=== PATIENT | male | born 1955 | race Asian ===

== ENCOUNTER 2016-11-17 07:21 | Day surgery (SDC) | payer OTHER ==
[~2016-11-17] VITALS: Ht 175.3 cm; Wt 74.8 kg
[2016-11-17 08:17] VITALS: BP 161/69
[2016-11-17 12:04] VITALS: BP 131/51
== END 2016-11-17 12:50 | disposition home or self-care (01) ==
LOC: GI 07:21 → OR 11:30 → GI 12:50
PROVIDERS: Internal Medicine Gastroenterology
PROC: 0DBN8ZZ Excision of Sigmoid Colon, Via Natural or Artificial Opening Endoscopic (ICD-10-PCS; principal; 2016-11-17 11:30)
PROC: 0DBM8ZZ Excision of Descending Colon, Via Natural or Artificial Opening Endoscopic (ICD-10-PCS; 2016-11-17 11:30)
DX: Z12.11 Encounter for screening for malignant neoplasm of colon (principal); D12.5 Benign neoplasm of sigmoid colon; D12.4 Benign neoplasm of descending colon; K57.30 Diverticulosis of large intestine without perforation or abscess without bleeding; K64.8 Other hemorrhoids; E11.9 Type 2 diabetes mellitus without complications; I10 Essential (primary) hypertension; J44.9 Chronic obstructive pulmonary disease, unspecified; Z83.3 Family history of diabetes mellitus; Z86.010 Personal history of colon polyps
CPT/HCPCS: 45378; J1200; J1610; J2250; J2310; J3010; J3490